=== PATIENT | female | born 1970 | race Caucasian/White ===

== ENCOUNTER 2017-10-11 16:31 | Emergency (ER) | payer MEDICAID ==
[~2017-10-11] VITALS: Ht 160 cm; Wt 56.7 kg
--- NOTE | 2017-10-14 09:16 | NUR ---
ROLLY 10/11/17 [id number] WAS REQUESTED BY STAFF TO TALK WITH PT. PT STATES THAT SHE WAS COMING HERE FROM [place] TO GO TO [place], BUT SHE STATES "THEY WOULDN'T LET ME STAY BECAUSE I HAD BENZOS IN MY URINE, SO THEY WOULDN'T LET ME STAY AND TOLD ME TO GO TO [place] TO [place], [place], OR ONE OTHER ONE. PT STATES I JUST NEED A MEDICAL RIDE TO GET THERE. I LOOKED AT THESE RESOURCES THEY WERE ALL CLOSED TO ADMITS OVER THE WEEKEND. TALKED WITH STAFF ABOUT GIVING A BUS SCHEDULE FOR HER TO CATCH A BUS TO [place]. AND THEN SHE BRINGS UP THAT HER BROTHER LIVES IN [place] AND SHE COULD GO STAY WITH HIM UNTIL SHE CAN GO TO [place].
== END 2017-10-11 19:34 | disposition home or self-care (01) ==
LOC: ED 16:31
DX: F10.10 Alcohol abuse, uncomplicated (principal); F15.10 Other stimulant abuse, uncomplicated; F17.200 Nicotine dependence, unspecified, uncomplicated; Y90.0 Blood alcohol level of less than 20 mg/100 ml
CPT/HCPCS: 36415; 80053; 81001; 85025; 96365; 96375; 99283; G0480; J2405; J3411; J7030